=== PATIENT | male | born 1955 | race Native Hawaiian/Other Pacific Islander ===

== ENCOUNTER 2017-02-02 18:42 | Emergency (ER) | payer BC ==
[~2017-02-02] VITALS: Ht 165.1 cm; Wt 113.4 kg
[2017-02-02 20:00] LABS: PLATELET COUNT 238 K/uL (142-355)
[2017-02-02 20:04] LABS: POTASSIUM 4.1 mmol/L (3.6-5.2)
[2017-02-02 22:33] VITALS: BP 122/77; TEMP 98.6
== END 2017-02-02 22:33 | disposition home or self-care (01) ==
LOC: ED 18:42
PROVIDERS: Family Medicine
DX: K57.32 Diverticulitis of large intestine without perforation or abscess without bleeding (principal)
CPT/HCPCS: 36415; 80053; 81000; 82150; 83690; 85027; 96365; 96374; 96375; 96376; 99284; J2405; J3490

== ENCOUNTER 2017-04-27 03:07 | Emergency (ER) | payer BC ==
[~2017-04-27] VITALS: Ht 165.1 cm; Wt 112.0 kg
[2017-04-27 04:03] LABS: PLATELET COUNT 152 K/uL (142-355)
[2017-04-27 04:13] LABS: POTASSIUM 3.9 mmol/L (3.6-5.2)
[2017-04-27 04:52] VITALS: BP 127/86; TEMP 98.6
== END 2017-04-27 04:53 | disposition home or self-care (01) ==
LOC: ED 03:07
DX: J06.9 Acute upper respiratory infection, unspecified (principal)
CPT/HCPCS: 36415; 80053; 85027; 87081; 87804; 87880; 99283

== ENCOUNTER 2020-05-27 10:17 | Outpatient (CLI) | payer OTHER | END 2020-05-27 21:49 | disposition home or self-care (01) | LOC: RESP 10:17 | PROVIDERS: ATTEND Specialist | DX: R07.89 Other chest pain (principal); Z91.89 Other specified personal risk factors, not elsewhere classified; Z82.49 Family history of ischemic heart disease and other diseases of the circulatory system ==

== ENCOUNTER 2021-07-02 08:04 | Observation (INO) | payer OTHER ==
[2021-07-02] VITALS (8 sets, daily range): BP systolic 99–169; BP diastolic 61–98; TEMP 98.1–98.7; Ht 165.1 cm; Wt 102.6 kg
[~2021-07-02] VITALS: Ht 165.1 cm; Wt 102.6 kg
[2021-07-02 08:58] LABS: PLATELET COUNT 154 K/uL (142-355)
[2021-07-02 09:19] LABS: POTASSIUM 3.9 mmol/L (3.6-5.2)
[2021-07-02 09:22] LABS: PARTIAL THROMBOPLASTIN TIME 26.9 SECONDS (24.5-33.6)
[2021-07-02] MEDS ORDERED: MELOXICAM7.5 MG PO (13:35)
[2021-07-02] MEDS ORDERED: FINASTERIDE5 MG PO (13:35)
[2021-07-02] MEDS ORDERED: NORCO 10/325***1 TAB PO (13:36)
[2021-07-02] MEDS ORDERED: LOSA50TA PO (13:37)
[2021-07-02] MEDS ORDERED: UROXATRAL10 MG PO (13:48)
[2021-07-02] MEDS ORDERED: METHOTREXATE S2.5 MG PO (13:49)
[2021-07-02] MEDS ORDERED: TADALAFIL10 MG PO (13:50)
[2021-07-02] MEDS ORDERED: TESTOST CYP200 MG/ML IM (13:51)
[2021-07-02] MEDS ORDERED: KP FOLIC ACID1 MG PO (13:52)
[2021-07-02] MEDS ORDERED: TRIMETHOPRIM100 MG PO (13:53)
[2021-07-02] MEDS ORDERED: [UNRECOGNIZED DRUG - OTHER] INH (13:54)
[2021-07-02] MEDS ORDERED: FLUTICASON INH (13:54)
[2021-07-02] MEDS ORDERED: SOMA350 MG PO (13:55)
[2021-07-03 00:05] VITALS: BP 127/70; TEMP 97.5
[2021-07-03 03:56] VITALS: BP 151/80; TEMP 97.6
[2021-07-03 04:40] LABS: PLATELET COUNT 152 K/uL (142-355)
[2021-07-03 08:00] VITALS: BP 133/83; TEMP 97.7
[2021-07-03 12:00] VITALS: BP 139/83; TEMP 97.7
== END 2021-07-03 16:30 | disposition home or self-care (01) ==
LOC: ED 08:04 → MED/SURG 10:10
PROVIDERS: Emergency Medicine; ADMIT Family Medicine; ATTEND Family Medicine
DX: I20.8 Other forms of angina pectoris (principal); I10 Essential (primary) hypertension; K21.9 Gastro-esophageal reflux disease without esophagitis
CPT/HCPCS: 36415; 80053; 80061; 82150; 82550; 83690; 83735; 84100; 84443; 84484; 85027; 85379; 85610; 85730; 87635; 93005; 94760; 99220; 99284; G0378; U0003